=== PATIENT | male | born 1980 | race Caucasian/White ===

== ENCOUNTER 2018-06-29 20:44 | Observation (INO) | payer OTHER ==
[2018-06-29] MEDS ORDERED: NA CHLORIDE 0.9% 1,000 ML ONE (21:38)
[2018-06-29 21:48] LABS: Absolute Lymphocytes (CBC) 1.5 K/uL (0.7-4.9); Absolute Monocytes 0.5 K/uL (0.1-1.3); Absolute Neutrophil 5.3 K/uL (1.8-8.0); Basophils % 0.3 % (0-1.3); Eosinophils % 2.3 % (0-4.4); Hematocrit 46.3 % (39.6-49.0); Lymphocytes % 20.1 % (15.3-44.8); MCH 29.9 pg (27.0-35.0); MCV 88.9 fL (80-100); MPV 8.1 fL (7.6-11.3); Monocytes % 6.4 % (3.3-12.3); RBC Red Blood Cell Count 5.21 M/uL (4.33-5.43)
--- NOTE | 2018-06-29 21:53 | EDPHYS ---
Physician Documentation [facility] Name: Denny Fishman Age: 38 yrs Sex: Male : 1980 Arrival Date: 06/29/2018 Time: 20:45 Bed 14 Private MD: ED Physician Marcos Lyles HPI: 06/29 21:47 This 38 yrs old Male presents to ER via Ambulatory with complaints of tommy Abdominal Pain. 21:47 The patient presents with abdominal pain. Onset: The symptoms/episode began/occurred 10 tommy day(s) ago. The patient presents to the emergency department with nausea, vomiting, diarrhea, that is intermittent, abdominal pain, of the left upper quadrant and abdomen diffusely. Onset: The symptoms/episode began/occurred 10 day(s) ago. Possible causes: unknown. The symptoms are aggravated by nothing. The symptoms are alleviated by nothing. Associated signs and symptoms: Pertinent positives: abdominal pain, diarrhea. Modifying factors: The symptoms are alleviated by nothing, the symptoms are aggravated by nothing. Historical: - Allergies: 20:55 No Known Allergies; ak1 - Home Meds: 20:55 None [Active]; ak1 - PMHx: 20:55 None; ak1 - PSHx: 20:55 None; ak1 - Immunization history:: Adult Immunizations unknown. - Social history:: Smoking status: Patient/guardian denies using tobacco. - Ebola Screening: : No symptoms or risks identified at this time. - Family history:: not pertinent. ROS: 21:47 Constitutional: Negative for fever, chills, and weight loss, Eyes: Negative for injury, tommy pain, redness, and discharge, ENT: Negative for injury, pain, and discharge, Neck: Negative for injury, pain, and swelling, Cardiovascular: Negative for chest pain, palpitations, and edema, Respiratory: Negative for shortness of breath, cough, wheezing, and pleuritic chest pain, Back: Negative for injury and pain, : Negative for injury, bleeding, discharge, and swelling, MS/Extremity: Negative for injury and deformity, Skin: Negative for injury, rash, and discoloration, Neuro: Negative for headache, weakness, numbness, tingling, and seizure, Psych: Negative for depression, anxiety, suicide ideation, homicidal ideation, and hallucinations, Allergy/Immunology: Negative for hives, rash, and allergies, Endocrine: Negative for neck swelling, polydipsia, polyuria, polyphagia, and marked weight changes, Hematologic/Lymphatic: Negative for swollen nodes, abnormal bleeding, and unusual bruising. 21:47 Abdomen/GI: Positive for abdominal pain, diarrhea, of the suprapubic area, right upper quadrant, left upper quadrant, right lower quadrant and left lower quadrant. Exam: 21:47 Constitutional: This is a well developed, well nourished patient who is awake, alert, tommy and in no acute distress. Head/Face: Normocephalic, atraumatic. Eyes: Pupils equal round and reactive to light, extra-ocular motions intact. Lids and lashes normal. Conjunctiva and sclera are non-icteric and not injected. Cornea within normal limits. Periorbital areas with no swelling, redness, or edema. ENT: Nares patent. No nasal discharge, no septal abnormalities noted. Tympanic membranes are normal and external auditory canals are clear. Oropharynx with no redness, swelling, or masses, exudates, or evidence of obstruction, uvula midline. Mucous membranes moist. Neck: Trachea midline, no thyromegaly or masses palpated, and no cervical lymphadenopathy. Supple, full range of motion without nuchal rigidity, or vertebral point tenderness. No Meningismus. Cardiovascular: Regular rate and rhythm with a normal S1 and S2. No gallops, murmurs, or rubs. Normal PMI, no JVD. No pulse deficits. Respiratory: Lungs have equal breath sounds bilaterally, clear to auscultation and percussion. No rales, rhonchi or wheezes noted. No increased work of breathing, no retractions or nasal flaring. Abdomen/GI: Soft, non-tender, with normal bowel sounds. No distension or tympany. No guarding or rebound. No evidence of tenderness throughout. Back: No spinal tenderness. No costovertebral tenderness. Full range of motion. Skin: Warm, dry with normal turgor. Normal color with no rashes, no lesions, and no evidence of cellulitis. MS/ Extremity: Pulses equal, no cyanosis. Neurovascular intact. Full, normal range of motion. Neuro: Awake and alert, GCS 15, oriented to person, place, time, and situation. Cranial nerves II-XII grossly intact. Motor strength 5/5 in all extremities. Sensory grossly intact. Cerebellar exam normal. Normal gait. Psych: Awake, alert, with orientation to person, place and time. Behavior, mood, and affect are within normal limits. 21:47 Chest/axilla: Inspection: normal, no acute changes. 21:47 Abdomen/GI: Inspection: distension, Bowel sounds: hyperactive, Palpation: mild abdominal tenderness, in all quadrants, Liver: no appreciated palpable abnormalities, Hernia: not appreciated. Vital Signs: 20:55 BP 130 / 95; Pulse 69; Resp 18; Temp 98.3(TE); Pulse Ox 100% on R/A; Weight 98.43 kg ak1 (R); Height 6 ft. 1 in. (185.42 cm) (R); Pain 10/10; 22:00 BP 132 / 91; Pulse 59; Resp 18; Pulse Ox 100% on R/A; jb4 23:00 BP 128 / 87; Pulse 67; Resp 18; Pulse Ox 98% on R/A; Pain 4/10; jb4 10 00:00 BP 124 / 86; Pulse 62; Resp 18; Pulse Ox 98% on R/A; jb4 06/29 20:55 Body Mass Index 28.63 (98.43 kg, 185.42 cm) ak1 MDM: 06/29 21:06 Patient medically screened. [facility] 06/29 21:16 Order name: Basic Metabolic Panel [facility] 06/29 21:16 Order name: CBC with Diff; Complete Time: 22:44 [facility] 06/29 21:16 Order name: Creatinine for Radiology; Complete Time: 22:44 [facility] 06/29 21:16 Order name: Hepatic Function; Complete Time: 22:44 [facility] 06/29 21:16 Order name: Lipase; Complete Time: 22:44 [facility] 06/29 21:16 Order name: Stool Culture [facility] 06/29 21:16 Order name: Fecal Leukocyte Stain [facility] 06/29 21:16 Order name: CDIFF [facility] 06/29 21:17 Order name: Basic Metabolic Panel; Complete Time: 22:44 [facility] 06/29 21:47 Order name: Abdomen Acute Series XRAY [facility] 06/29 22:42 Order name: RAD; Complete Time: 22:44 [facility] 06/29 21:16 Order name: IV Saline Lock; Complete Time: 21:30 [facility] 06/29 21:16 Order name: Labs collected and sent; Complete Time: 21:30 [facility] 06/29 21:56 Order name: CONS Physician Consult EDMS Administered Medications: 21:36 Drug: NS 0.9% 1000 ml Route: IV; Rate: 1 bolus; Site: right antecubital; jb4 06/30 00:06 Follow up: Response: No adverse reaction; IV Status: Completed infusion [facility] 06/29 21:50 Drug: Pepcid 20 mg Route: IVP; Site: right antecubital; jb4 23:50 Follow up: Response: No adverse reaction; Pain is decreased jb4 21:51 Drug: Zofran 4 mg Route: IVP; Site: right antecubital; jb4 23:51 Follow up: Response: No adverse reaction; Pain is decreased jb4 21:54 Drug: morphine 4 mg Route: IVP; Site: right antecubital; jb4 23:51 Follow up: Response: No adverse reaction; Pain is decreased 4 22:36 Drug: Cipro 400 mg Volume: 200 ml; Route: IVPB; Infused Over: 60 mins; Site: right jb4 antecubital; 23:36 Follow up: Response: No adverse reaction; IV Status: Completed infusion jb 22:36 Drug: Flagyl 500 mg Volume: 100 ml; Route: IVPB; Rate: 200 ml/hr; Infused Over: 30 jb4 mins; Site: right antecubital; 23:06 Follow up: Response: No adverse reaction; IV Status: Completed infusion jb4 Disposition: 06/29/18 21:52 Hospitalization ordered by Roshni Ferrara for Inpatient Admission. Preliminary diagnosis are Abdominal tenderness, Diarrhea, unspecified. - Bed requested for Telemetry/MedSurg (Inpatient). - Status is Inpatient Admission. jb4 - Condition is Stable. - Problem is new. - Symptoms have improved. UTI on Admission? No Signatures: Dispatcher [employer] EDSD Betsy Rowell RN RN mw Anderson, Corey, MD MD cha Krenek, Amber RN RN ak1 Lee Borden RN RN jb4 Corrections: (The following items were deleted from the chart) 22:24 21:52 Hospitalization Ordered by Roshni Ferrara MD for Inpatient Admission. Preliminary diagnosis is Abdominal tenderness; Diarrhea, unspecified. Bed requested for Telemetry/MedSurg (Inpatient). Status is Inpatient Admission. Condition is Stable. Problem is new. Symptoms have improved. UTI on Admission? No. tommy 06/30 00:30 06/29 22:24 06/29/2018 21:52 Hospitalization Ordered by Roshni Ferrara MD for Inpatient jb4 Admission. Preliminary diagnosis is Abdominal tenderness; Diarrhea, unspecified. Bed requested for Telemetry/MedSurg (Inpatient). Status is Inpatient Admission. Condition is Stable. Problem is new. Symptoms have improved. UTI on Admission? No.
--- NOTE | 2018-06-29 21:53 | ER ---
Nurse's Notes [facility] Name: Denny Fishman Age: 38 yrs Sex: Male : 1980 Arrival Date: 06/29/2018 Time: 20:45 Bed 14 Private MD: Diagnosis: Abdominal tenderness;Diarrhea, unspecified Presentation: 06/29 20:53 Presenting complaint: Patient states: abd pain X10 days. Diarrhea started 1 week ago, ak1 resolved . pt stated abd pain started again . pt seen and CT done at [facility] yesterday. pt given script for pain medications and Protonix. pt stated he had same s/s 15 years ago, spent 3days in hospital with only ulcers as a dx. Transition of care: patient was not received from another setting of care. Onset of symptoms is unknown. Risk Assessment: Do you want to hurt yourself or someone else? Patient reports no desire to harm self or others. Initial Sepsis Screen: Does the patient meet any 2 criteria? No. Patient's initial sepsis screen is negative. Does the patient have a suspected source of infection? No. Patient's initial sepsis screen is negative. Care prior to arrival: None. 20:53 Method Of Arrival: Ambulatory ak1 20:53 Acuity: JORGE 3 ak1 Triage Assessment: 20:55 General: Appears uncomfortable, Behavior is calm, cooperative. Pain: Complains of pain ak1 in abdomen. EENT: No signs and/or symptoms were reported regarding the EENT system. Neuro: No deficits noted. Cardiovascular: No deficits noted. Respiratory: No deficits noted. GI: Reports lower abdominal pain, upper abdominal pain, bloating. Historical: - Allergies: 20:55 No Known Allergies; ak1 - Home Meds: 20:55 None [Active]; ak1 - PMHx: 20:55 None; ak1 - PSHx: 20:55 None; ak1 - Immunization history:: Adult Immunizations unknown. - Social history:: Smoking status: Patient/guardian denies using tobacco. - Ebola Screening: : No symptoms or risks identified at this time. - Family history:: not pertinent. Screenin:57 Abuse screen: Denies threats or abuse. Denies injuries from another. Nutritional ak1 screening: No deficits noted. Tuberculosis screening: No symptoms or risk factors identified. Fall Risk None identified. Assessment: 21:00 General: Appears in no apparent distress. uncomfortable, Behavior is calm, cooperative. jb4 Pain: Complains of pain in abdomen Pain does not radiate. Pain currently is 8 out of 10 on a pain scale. at worst was 10 out of 10 on a pain scale. Quality of pain is described as crampy, sharp, Pain began 10 says ago Is intermittent. Neuro: Level of Consciousness is awake, alert, obeys commands, Oriented to person, place, time, situation. Cardiovascular: Patient's skin is warm and dry. Respiratory: Airway is patent Respiratory effort is even, unlabored, Respiratory pattern is regular, symmetrical. GI: Abdomen is round non-distended, Bowel sounds present X 4 quads. Abd is soft and non tender X 4 quads. Reports lower abdominal pain, upper abdominal pain. : No signs and/or symptoms were reported regarding the genitourinary system. EENT: No signs and/or symptoms were reported regarding the EENT system. Derm: Skin is intact, Skin is pink, warm \T\ dry. Musculoskeletal: Circulation, motion, and sensation intact. 22:00 Reassessment: Patient appears in no apparent distress at this time. Patient and/or jb4 family updated on plan of care and expected duration. Pain level reassessed. Patient is alert, oriented x 3, equal unlabored respirations, skin warm/dry/pink. 23:00 Reassessment: Patient appears in no apparent distress at this time. Patient and/or jb4 family updated on plan of care and expected duration. Pain level reassessed. Patient is alert, oriented x 3, equal unlabored respirations, skin warm/dry/pink. 23:30 Reassessment: Patient appears in no apparent distress at this time. Patient and/or jb4 family updated on plan of care and expected duration. Pain level reassessed. Patient is alert, oriented x 3, equal unlabored respirations, skin warm/dry/pink. Pt reports feeling better after medication administration. Back from CT Patient states feeling better. 06/30 00:00 Reassessment: Patient appears in no apparent distress at this time. Patient and/or jb4 family updated on plan of care and expected duration. Pain level reassessed. Patient is alert, oriented x 3, equal unlabored respirations, skin warm/dry/pink. Patient states feeling better. Vital Signs: 06/29 20:55 BP 130 / 95; Pulse 69; Resp 18; Temp 98.3(TE); Pulse Ox 100% on R/A; Weight 98.43 kg ak1 (R); Height 6 ft. 1 in. (185.42 cm) (R); Pain 10/10; 22:00 BP 132 / 91; Pulse 59; Resp 18; Pulse Ox 100% on R/A; jb4 23:00 BP 128 / 87; Pulse 67; Resp 18; Pulse Ox 98% on R/A; Pain 4/10; jb4 06/30 00:00 BP 124 / 86; Pulse 62; Resp 18; Pulse Ox 98% on R/A; jb4 06/29 20:55 Body Mass Index 28.63 (98.43 kg, 185.42 cm) ak1 ED Course: 06/29 20:45 Patient arrived in ED. ds1 20:54 Lee Borden, RN is Primary Nurse. jb4 20:55 Triage completed. ak1 20:55 Arm band placed on Patient placed in an exam room, on a stretcher, on pulse oximetry, ak1 Patient notified of wait time. 20:56 Patient has correct armband on for positive identification. Bed in low position. Call ak1 light in reach. Side rails up X 1. Pulse ox on. NIBP on. 21:00 Initial lab(s) drawn, by me, sent to lab. Inserted saline lock: 20 gauge in right jb4 antecubital area, using aseptic technique. Blood collected. 21:06 Marcos Lyles MD is Attending Physician. [facility] 21:52 Roshni Ferrara MD is Hospitalizing Provider. [facility] 06/30 00:00 No provider procedures requiring assistance completed. Patient admitted, IV remains in jb4 place. Administered Medications: 06/29 21:36 Drug: NS 0.9% 1000 ml Route: IV; Rate: 1 bolus; Site: right antecubital; 4 06/30 00:06 Follow up: Response: No adverse reaction; IV Status: Completed infusion [facility] 06/29 21:50 Drug: Pepcid 20 mg Route: IVP; Site: right antecubital; [facility] 23:50 Follow up: Response: No adverse reaction; Pain is decreased [facility] 21:51 Drug: Zofran 4 mg Route: IVP; Site: right antecubital; jb4 23:51 Follow up: Response: No adverse reaction; Pain is decreased jb4 21:54 Drug: morphine 4 mg Route: IVP; Site: right antecubital; jb4 23:51 Follow up: Response: No adverse reaction; Pain is decreased jb4 22:36 Drug: Cipro 400 mg Volume: 200 ml; Route: IVPB; Infused Over: 60 mins; Site: right jb4 antecubital; 23:36 Follow up: Response: No adverse reaction; IV Status: Completed infusion jb4 22:36 Drug: Flagyl 500 mg Volume: 100 ml; Route: IVPB; Rate: 200 ml/hr; Infused Over: 30 jb4 mins; Site: right antecubital; 23:06 Follow up: Response: No adverse reaction; IV Status: Completed infusion jb4 Outcome: 21:52 Decision to Hospitalize by Provider. tommy 06/30 00:00 Admitted to Med/surg accompanied by tech, via wheelchair, room 212, with chart, Report jb4 called to ELTON Cannon Condition: stable Instructed on the need for admit, Demonstrated understanding of instructions. 00:30 Patient left the ED. jb4 Signatures: Marcos Lyles MD MD cha Sanford, Demi ds1 Carmina Brasher, RN RN ak1 Lee Borden RN RN jb4
[2018-06-29] MEDS ORDERED: MORPHINE 4 MG/ML SYR ONE (22:01)
[2018-06-29 22:02] LABS: ALT/SGPT 57 U/L (12-78); AST/SGOT 43 U/L (15-37); Albumin 3.5 g/dL (3.4-5.0); Alkaline Phosphatase 132 U/L (45-117); BUN Blood Urea Nitrogen 7 mg/dL (7-18); Bicarbonate 28 mmol/L (21-32); Bilirubin Direct 0.1 mg/dL (0-0.2); Bilirubin Total 0.4 mg/dL (0.2-1.0); Glucose Level 103 mg/dL (74-106); Lipase 180 U/L (73-393); Potassium 4.3 mmol/L (3.5-5.1); Protein, Total 6.7 g/dL (6.4-8.2); Sodium Level 142 mmol/L (136-145)
[2018-06-29] MEDS ORDERED: CIPROFLOXACIN 400mg IV 400 MG/200 ML BAG IV ONE (22:02)
[2018-06-29] MEDS ORDERED: ONDANSETRON 4 MG/2 ML VIAL ONE (22:02)
[2018-06-29] MEDS ORDERED: FAMOTIDINE 20 MG/2 ML VIAL IV ONE (22:02)
[2018-06-29] MEDS ORDERED: METRONIDAZOLE 500mg IVPB 500 MG/100 ML BAG IV ONE (22:02)
--- NOTE | 2018-06-29 22:41 | RAD REPORT ---
EXAM DESCRIPTION: RAD - Abdomen Acute Series - 06/29/2018 10:23 pm CLINICAL HISTORY: Abdominal pain COMPARISON: None. FINDINGS: Lungs are clear. Heart size and vessels are normal. No pleural effusion, pneumothorax or o ther acute cardiopulmonary process seen. Bowel gas pattern is nonspecific. No bowel obstruction, free air or other acute findings. No suspicio us calcifications. No other suspicious for significant findings. IMPRESSION: Negative acute abdomen series.
[2018-06-29] MEDS ORDERED: ONDANSETRON 4 MG/2 ML VIAL IV PRN (23:26)
[2018-06-29] MEDS ORDERED: MORPHINE 2 MG/ML SYR IV PRN (23:26)
[2018-06-29] MEDS ORDERED: ACETAMINOPHEN 500 MG TAB PO PRN (23:26)
[2018-06-30] MEDS: NA CHLORIDE 0.9% 1,000 ML IV SCH ×2 (00:54→09:45)
[2018-06-30] MEDS ORDERED: METHYLPREDNISOLONE 125 MG INJ IV ONE (01:04)
[2018-06-30] MEDS ORDERED: SODIUM CHLORIDE 0.9% 10ML INJ IV PRN (01:05)
[2018-06-30] MEDS ORDERED: PANTOPRAZOLE 40 MG INJ IVP ONE (01:05)
[2018-06-30] MEDS ORDERED: FENTANYL CITR 100 MCG/2 ML IV PRN (01:05)
[2018-06-30] MEDS ORDERED: METHYLPREDNISOLONE 125 MG INJ IV SCH (06:00)
[2018-06-30 06:02] LABS: Urine Appearance CLEAR; Urine Bilirubin NEGATIVE (NEG); Urine Blood NEGATIVE (NEG); Urine Color YELLOW; Urine Glucose NEGATIVE (NEG); Urine Protein NEGATIVE (NEG); Urine Urobilinogen 0.2 mg/dL (0.2-1.0); Urine pH 6.5 (5.0-7.0)
[2018-06-30 06:05] LABS: Absolute Lymphocytes (CBC) 0.8 K/uL (0.7-4.9); Absolute Monocytes 0.1 K/uL (0.1-1.3); Absolute Neutrophil 4.3 K/uL (1.8-8.0); Basophils % 0.1 % (0-1.3); Eosinophils % 0.4 % (0-4.4); Hematocrit 44.2 % (39.6-49.0); Lymphocytes % 14.9 % (15.3-44.8); MCH 30.4 pg (27.0-35.0); MPV 8.5 fL (7.6-11.3); Monocytes % 2.3 % (3.3-12.3); RBC Red Blood Cell Count 4.96 M/uL (4.33-5.43)
[2018-06-30 06:07] LABS: Urine Microscopic Reflex NO UMIC
[2018-06-30 06:14] LABS: ALT/SGPT 51 U/L (12-78); AST/SGOT 31 U/L (15-37); Albumin 3.1 g/dL (3.4-5.0); Alkaline Phosphatase 121 U/L (45-117); BUN Blood Urea Nitrogen 6 mg/dL (7-18); Bicarbonate 28 mmol/L (21-32); Bilirubin Total 0.2 mg/dL (0.2-1.0); Glucose Level 111 mg/dL (74-106); Phosphorus 1.9 mg/dL (2.5-4.9); Potassium 4.4 mmol/L (3.5-5.1); Protein, Total 6.1 g/dL (6.4-8.2); Sodium Level 143 mmol/L (136-145)
[2018-06-30] MEDS ORDERED: INFLUENZA VACCINE (for 3y+) 0.5 ML DOSE IMVAC ONE (08:00)
--- NOTE | 2018-06-30 08:00 | P.HP ---
Certification for Inpatient Patient admitted to: Observation With expected LOS: <2 Midnights Patient will require the following post-hospital care: None Practitioner: I am a practitioner with admitting privileges, knowledge of patient current condition, hospital course, and medical plan of care. Services: Services provided to patient in accordance with Admission requirements found in Title 42 Section 412.3 of the Code of Federal Regulations Patient History Date of Service: 06/29/18 Reason for admission: Abdominal pain/nausea and vomiting History of Present Illness: Patient is a 38-year-old gentleman who came into the hospital with abdominal pain along with an episode of vomiting. Patient had a similar episode about 15 years ago he was admitted to the hospital for about 3 days. He states that he may have had some inflammation of the stomach but he does not really recall exactly what they found. He went to [facility] emergency room yesterday and a CT scan revealed small bowel enteritis. He was given pain medication discharge home. However, his pain was worsened at home so he came back to our emergency room. In the emergency room, he continued to have significant amount of pain. He was admitted for observation and hydration. Allergies No Known Allergies Allergy (Verified 06/30/18 01:00) Home Medications: NK [No Home Meds] 06/30/18 - Past Medical/Surgical History Has patient received pneumonia vaccine in the past: No Diabetic: No Past Medical History: Patient denies medical history Past Surgical History: Patient denies surgical history - Family History Father Medical History: Diabetes Notes: Prostate ca Mother Notes: shingles - Social History Smoking Status: Current every day smoker Alcohol use: Yes CD- Drugs: No Caffeine use: Yes Place of Residence: Home Review of Systems 10-point ROS is otherwise unremarkable Physical Examination - Vital Signs Temperature: 97.4 F Blood Pressure: 129/76 Pulse: 67 Respirations: 16 Pulse Ox (%): 95 - Physical Exam General: Alert, In no apparent distress, Oriented x3 HEENT: Atraumatic, PERRLA, Mucous membr. moist/pink, EOMI, Sclerae nonicteric Neck: Supple, 2+ carotid pulse no bruit, No LAD, Without JVD or thyroid abnormality Respiratory: Clear to auscultation bilaterally, Normal air movement Cardiovascular: Regular rate/rhythm, Normal S1 S2, No murmurs Gastrointestinal: Normal bowel sounds, Soft and benign, Non-distended, Tenderness (Mild right upper quadrant tenderness) Musculoskeletal: No clubbing, No swelling, No tenderness Integumentary: No rashes Neurological: Normal gait, Normal speech, Normal strength at 5/5 x4 extr, Normal tone, Sensation intact, Cranial nerves 3-12 intact, Normal affect Lymphatics: No axilla or inguinal lymphadenopathy - Studies Laboratory Data (last 24 hrs) 06/29/18 21:25: Creatinine 0.90 06/29/18 21:25: WBC 7.5, Hgb 15.6, Hct 46.3, Plt Count 225 06/29/18 21:25: Sodium 142, Potassium 4.3, BUN 7, Creatinine 0.90, Glucose 103, Total Bilirubin 0.4, AST 43 H, ALT 57, Alkaline Phosphatase 132 H, Lipase 180 Assessment & Plan - Problems (Diagnosis) (1) Abdominal pain Current Visit: Yes Status: Acute (2) Intractable nausea and vomiting Current Visit: Yes Status: Acute - Plan 1. Continue with IV hydration 2. Evaluate for other etiology of abdominal pain can be done as an outpatient if his symptoms improve 3. Continue with pain control 4. Clear liquid diet and advance as tolerated 5. GI consultation; 6. Serial H&H, and we will monitor CBC, BMP, LFTs and lipase along with getting a urine drug screen to further evaluate other etiologies of abdominal pain/ nausea and vomiting 7. GI and DVT prophylaxis Discharge Plan: Home Plan to discharge in: 24 Hours - Advance Directives Does patient have a Living Will: No Does patient have a Durable POA for Healthcare: No - Code Status/Comfort Care Code Status Assessed: Yes Code Status: Full Code Critical Care: No Time Spent Managing PTS Care (In Minutes): 50
[2018-06-30] MEDS ORDERED: PANTOPRAZOLE 40 MG INJ IVP SCH (09:00)
[2018-06-30 12:51] LABS: Urine Appearance CLEAR; Urine Bilirubin NEGATIVE (NEG); Urine Blood NEGATIVE (NEG); Urine Color YELLOW; Urine Glucose NEGATIVE (NEG); Urine Protein NEGATIVE (NEG); Urine Specific Gravity <=1.005 (1.005-1.030); Urine Urobilinogen 0.2 mg/dL (0.2-1.0)
[2018-06-30 13:03] LABS: Barbiturates NEGATIVE (NEGATIVE); Benzodiazepines NEGATIVE (NEGATIVE); Cocaine NEGATIVE (NEGATIVE); METHAMPHETAM NEGATIVE (NEGATIVE); Methadone NEGATIVE (NEGATIVE); Opiates NEGATIVE (NEGATIVE); Phencyclidine NEGATIVE (NEGATIVE); THC Cannibis NEGATIVE (NEGATIVE)
[2018-06-30 13:17] LABS: Urine Bacteria NONE SEEN /HPF (NONE SEEN); Urine Culture Reflex Order NOT NEEDED; Urine RBC NONE SEEN /HPF (NONE SEEN)
--- NOTE | 2018-06-30 13:51 | P.DS ---
Admission Date: 06/29/18 Discharge Date: 06/30/18 Primary Care Provider: Dr. Alexis Disposition: ROUTINE DISCHARGE Discharge Condition: GOOD Reason for Admission: Abdominal pain/nausea and vomiting Consultations: None Procedures: GI x-ray: COMPARISON: None. FINDINGS: Lungs are clear. Heart size and vessels are normal. No pleural effusion, pneumothorax or other acute cardiopulmonary process seen. Bowel gas pattern is nonspecific. No bowel obstruction, free air or other acute findings. No suspicious calcifications. No other suspicious for significant findings. IMPRESSION: Negative acute abdomen series. Medical Problem List: Abdominal pain secondary to enteritis likely viral Nausea and vomiting GERD Brief History of Present Illness: 38-year-old male presented to emergency room for abdominal pain, nausea and vomiting. Patient recently seen at the outpatient ER[facility]. Patient found to have enteritis. Patient was sent home with Protonix, Bentyl, and tramadol. Pain persisted. Patient came to the ER for further evaluation and admitted. Hospital Course: Patient recently evaluated by outpatient ER and found to have enteritis. Patient sent home but continued with abdominal pain, nausea and vomiting. Patient admitted for further evaluation. Acute abdominal x-ray series showed no obstruction or significant abnormal changes. Patient was monitored overnight. Patient tolerated his diet. No significant abdominal pain noted at discharge. No nausea vomiting noted as well. This is likely viral in nature with a component of possible GERD. At discharge patient will continue with Protonix 40 mg 1 pill once daily, Bentyl 10 mg 1 pill 3 times a day as needed for GI spasm and tramadol 50 mg 1 pill twice daily as needed for pain. Recommendation is for the patient to see GI within 1 week to further evaluate and address. Patient may require GI intervention-endoscopy to further evaluate. Patient will continue with a soft GI diet and advance to heart healthy within the next 5 days. Medication for nausea-Zofran will be provided to be use as needed. Recommendation on no further use of nonsteroidal anti- inflammatories. Vital Signs/Physical Exam: Temp Pulse Resp BP Pulse Ox 97.4 F 67 16 129/76 95 06/30/18 08:04 06/30/18 08:04 06/30/18 08:04 06/30/18 08:04 06/30/18 08:04 General: Alert, In no apparent distress, Oriented x3, Cooperative HEENT: Atraumatic, Mucous membr. moist/pink Neck: Supple, No Thyromegaly Respiratory: Clear to auscultation bilaterally, Normal air movement Cardiovascular: Normal pulses, Regular rate/rhythm Gastrointestinal: Normal bowel sounds, Soft and benign, Non-distended, No tenderness, No masses, No rebound, No guarding Musculoskeletal: No erythema, No tenderness, No warmth Integumentary: No tenderness/swelling, No erythema, No warmth, No cyanosis Neurological: Normal speech, Normal strength at 5/5 x4 extr, Normal tone, Normal affect Laboratory Data at Discharge: WBC 5.3 K/uL (4.3-10.9) D 06/30/18 05:19 Hgb 15.1 g/dL (13.6-17.9) 06/30/18 05:19 Hct 44.2 % (39.6-49.0) 06/30/18 05:19 Plt Count 215 K/uL (152-406) 06/30/18 05:19 Sodium 143 mmol/L (136-145) 06/30/18 05:19 Potassium 4.4 mmol/L (3.5-5.1) 06/30/18 05:19 BUN 6 mg/dL (7-18) L 06/30/18 05:19 Creatinine 0.90 mg/dL (0.55-1.3) 06/30/18 05:19 Glucose 111 mg/dL (74-106) H 06/30/18 05:19 Phosphorus 1.9 mg/dL (2.5-4.9) L 06/30/18 05:19 Magnesium 2.0 mg/dL (1.8-2.4) 06/30/18 05:19 Total Bilirubin 0.2 mg/dL (0.2-1.0) 06/30/18 05:19 AST 31 U/L (15-37) 06/30/18 05:19 ALT 51 U/L (12-78) 06/30/18 05:19 Alkaline Phosphatase 121 U/L (45-117) H 06/30/18 05:19 Lipase 180 U/L (73-393) 06/29/18 21:25 Home Medications: Dicyclomine [Bentyl] 10 mg PO TID PRN #10 cap 06/30/18 Ondansetron HCl [Zofran] 4 mg PO TID PRN #10 tablet 06/30/18 Pantoprazole [Protonix Tab] 40 mg PO DAILY #30 tab 06/30/18 New Medications: Dicyclomine [Bentyl] 10 mg PO TID PRN #10 cap PRN Reason: Gastric Upset/ Indigestion Ondansetron HCl [Zofran] 4 mg PO TID PRN #10 tablet PRN Reason: Nausea / Vomiting Pantoprazole [Protonix Tab] 40 mg PO DAILY #30 tab Patient Discharge Instructions: 1. Patient will follow up with his PCP within 1 week to follow up this hospitalization. 2. Patient recently evaluated by outpatient ER and found to have enteritis. Patient sent home but continued with abdominal pain, nausea and vomiting. Patient admitted for further evaluation. Acute abdominal x-ray series showed no obstruction or significant abnormal changes. Patient was monitored overnight. Patient tolerated his diet. No significant abdominal pain noted at discharge. No nausea vomiting noted as well. This is likely viral in nature with a component of possible GERD. At discharge patient will continue with Protonix 40 mg 1 pill once daily , Bentyl 10 mg 1 pill 3 times a day as needed for GI spasm and tramadol 50 mg 1 pill twice daily as needed for pain. Recommendation is for the patient to see GI within 1 week to further evaluate and address. Patient may require GI intervention-endoscopy to further evaluate. Patient will continue with a soft GI diet and advance to heart healthy within the next 5 days. Medication for nausea-Zofran will be provided to be use as needed. Recommendation on no further use of nonsteroidal anti-inflammatories. Diet: Soft GI then advance to [employer] diet Activity: Ad ashish Time spent managing pt's care (in minutes): 55
== END 2018-06-30 15:40 | disposition home or self-care (01) ==
LOC: ER 20:44 → ERHOLD 21:53 → INTOOBSV 21:53 → 2ND 06-30 00:15
PROVIDERS: ADMIT Hospitalist; ATTEND Hospitalist
DX: K52.9 Noninfective gastroenteritis and colitis, unspecified (principal); K21.9 Gastro-esophageal reflux disease without esophagitis; F17.210 Nicotine dependence, cigarettes, uncomplicated
CPT/HCPCS: 36415; 74022; 80048; 80053; 80076; 80307; 81001; 81003; 83690; 83735; 84100; 85025; 96361; 96365; 96368; 96375; 99285; C9113; G0378; J0744; J2270; J2405; J2930; J7030; Q2035